=== PATIENT | female | born 1975 | race Caucasian/White ===

== ENCOUNTER 2017-03-15 15:27 | Emergency (ER) | payer OTHER ==
[~2017-03-15] VITALS: Ht 180.3 cm; Wt 93.9 kg
[2017-03-15 20:15] VITALS: BP 137/70
== END 2017-03-15 20:15 | disposition home or self-care (01) ==
LOC: ED 15:27
DX: J20.9 Acute bronchitis, unspecified (principal); J45.909 Unspecified asthma, uncomplicated; Z79.899 Other long term (current) drug therapy